=== PATIENT | female | born 1990 | race Caucasian/White ===

== ENCOUNTER 2017-05-05 20:01 | Emergency (ER) | payer OTHER ==
[~2017-05-05 20:01] MED LIST: FLEXERIL PO; VICODIN 5/500 T1 TAB PO
== END 2017-05-05 21:14 | disposition home or self-care (01) ==
LOC: SED 20:01
DX: S61.412A Laceration without foreign body of left hand, initial encounter (principal); W25.XXXA Contact with sharp glass, initial encounter; Y92.009 Unspecified place in unspecified non-institutional (private) residence as the place of occurrence of the external cause; Y99.8 Other external cause status
CPT/HCPCS: 12001; 99283